=== PATIENT | female | born 1940 | race Two or more races ===

== ENCOUNTER 2022-03-12 20:37 | Emergency (ER) | payer BC, OTHER ==
[~2022-03-12] VITALS: Ht 162.6 cm; Wt 108.9 kg
[2022-03-12] MEDS ORDERED: FUROSEMIDE 40 MG/4 ML VIAL IV ONE (21:30)
[2022-03-12 22:17] LABS: Eosinophils # (auto) 0.2 10 ^3/uL (0-0.8); Eosinophils % (auto) 3.4 % (0.0-7.0); Hemoglobin 11.2 g/dL (12.2-16.2); Nucleated Red Blood Cells % 0.1 %
[2022-03-12 22:19] LABS: Basophils # (auto) 0.1 10 ^3/uL (0-0.2); Basophils % (auto) 1.4 % (0.0-2.0); Lymphocytes % (auto) 30.7 % (10.0-50.0); Mean Corpuscular Hemoglobin 24.9 pg (28.0-32.0); Mean Corpuscular Hgb Conc. 32.9 g/dL (32.0-36.0); Mean Corpuscular Volume 75.7 fL (80.0-100.0); Monocytes # (auto) 0.7 10 ^3/uL (0-1.3); Monocytes % (auto) 10.2 % (0.0-12.0); Neutrophils # (auto) 3.6 10 ^3/uL (1.6-8.6); Neutrophils % (auto) 54.3 % (37.0-80.0); Red Blood Cells 4.49 10^6/uL (4.0-5.20); Red Cell Distribution Width 17.8 % (11.8-14.3); White Blood Cell 6.6 10^3/uL (4.4-10.8)
[2022-03-12 22:21] LABS: Albumin 2.9 g/dL (3.4-5.0); Calcium 8.6 mg/dL (8.5-10.1); Potassium 4.6 mmol/L (3.5-5.1)
[2022-03-12 22:23] LABS: BUN/Creatinine Ratio 24.8
[2022-03-12 22:25] LABS: Bilirubin, Total 0.2 mg/dL (0.2-1.0); Total Protein 7.1 g/dL (6.4-8.2)
[2022-03-13 00:12] LABS: Urine Bacteria MANY /hpf (None Seen); Urine Blood Negative /uL (Negative); Urine Mucus FEW (None Seen); Urine WBC 111 /hpf (0 - 5)
[2022-03-13] MEDS ORDERED: cefTRIAXone 1GM/50ML D5W 50 ML IV ONE (03:45)
[2022-03-13] MEDS ORDERED: CEPH500C PO (05:55)
[2022-03-13] MEDS ORDERED: RIVA10TA PO (05:55)
[2022-03-13 12:55] VITALS: BP 157/63
== END 2022-03-13 13:05 | disposition home or self-care (01) ==
LOC: ER 20:44
DX: R60.0 Localized edema (principal); N39.0 Urinary tract infection, site not specified; I11.0 Hypertensive heart disease with heart failure; I50.9 Heart failure, unspecified; Z90.49 Acquired absence of other specified parts of digestive tract
CPT/HCPCS: 36415; 71045; 71275; 80053; 81001; 83880; 85025; 93971; 96365; 96375; 99285; J0696; J1940

== ENCOUNTER 2022-11-08 13:20 | Emergency (ER) | payer BC ==
[~2022-11-08] VITALS: Ht 162.6 cm; Wt 104.0 kg
[~2022-11-08 13:20] MED LIST: CEPH500C PO; RIVA10TA PO
[2022-11-08 14:30] LABS: Hemoglobin 11.1 g/dL (12.2-16.2)
[2022-11-08 14:32] LABS: Basophils # (auto) 0.1 10 ^3/uL (0-0.2); Basophils % (auto) 0.8 % (0.0-2.0); Eosinophils # (auto) 0.1 10 ^3/uL (0-0.8); Eosinophils % (auto) 0.6 % (0.0-7.0); Hematocrit 33.2 % (36.0-46.0); Lymphocytes # (auto) 1.6 10 ^3/uL (0.4-5.4); Lymphocytes % (auto) 18.2 % (10.0-50.0); Mean Corpuscular Hemoglobin 24.7 pg (28.0-32.0); Mean Corpuscular Hgb Conc. 33.4 g/dL (32.0-36.0); Mean Corpuscular Volume 73.9 fL (80.0-100.0); Monocytes % (auto) 11.5 % (0.0-12.0); Neutrophils # (auto) 6.2 10 ^3/uL (1.6-8.6); Neutrophils % (auto) 68.9 % (37.0-80.0); Red Blood Cells 4.49 10^6/uL (4.0-5.20); Red Cell Distribution Width 16.8 % (11.8-14.3); White Blood Cell 8.9 10^3/uL (4.4-10.8)
[2022-11-08] MEDS ORDERED: FUROSEMIDE 20 MG/2 ML VIAL IV ONE (14:45)
[2022-11-08] MEDS ORDERED: AZITHROMYCIN 500MG/ 250ML 250 ML IV ONE (14:45)
[2022-11-08] MEDS ORDERED: cefTRIAXone 1GM/50ML D5W 50 ML IV ONE (14:45)
[2022-11-08 15:31] LABS: Albumin 2.9 g/dL (3.4-5.0); BUN/Creatinine Ratio 33.6; Bilirubin, Total 0.4 mg/dL (0.2-1.0); Calcium 8.5 mg/dL (8.5-10.1); Potassium 4.5 mmol/L (3.5-5.1); Total Protein 7.2 g/dL (6.4-8.2)
[2022-11-08] MEDS ORDERED: guaiFENesin-DM 100/10mg/5ml SYR PO ONE ×2 (17:45→21:30)
[2022-11-08] MEDS ORDERED: ENALAPRILAT 1.25 MG/ML-1ML VIAL IV ONE (18:00)
[2022-11-08] MEDS ORDERED: cloNIDine HCL 0.1 MG TAB PO ONE (18:00)
[2022-11-09 03:00] VITALS: BP 154/59
== END 2022-11-09 03:15 | disposition home or self-care (01) ==
LOC: ER 13:20 → EDBD 13:20 → ER 11-09 03:15
DX: I11.0 Hypertensive heart disease with heart failure (principal); I50.9 Heart failure, unspecified; E11.9 Type 2 diabetes mellitus without complications; Z90.49 Acquired absence of other specified parts of digestive tract; Z20.822 Contact with and (suspected) exposure to COVID-19
CPT/HCPCS: 36415; 71045; 80053; 82962; 83605; 83880; 84484; 85025; 87040; 87077; 87186; 87426; 87804; 93005; 96365; 96366; 96368; 96375; 99285; J0456; J0696; J1940